=== PATIENT | female | born 1965 | race Caucasian/White ===

== ENCOUNTER 2018-07-19 13:18 | Emergency (ER) | payer BC ==
[~2018-07-19] VITALS: Ht 162.6 cm; Wt 96.2 kg
[2018-07-19 13:25] VITALS: BP 182/103
[2018-07-19 15:28] LABS: Calcium 9.1 mg/dL (8.5-10.1); Magnesium 2.4 mg/dL (1.6-2.6); Potassium 3.9 mmol/L (3.5-5.1)
[2018-07-19 15:34] LABS: BUN/Creatinine Ratio 15.3; Bilirubin, Total 0.3 mg/dL (0.2-1.0); Total Protein 8.2 g/dL (6.4-8.2)
[2018-07-19 15:52] LABS: Basophils # (auto) 0 uL; Basophils % (auto) 0.4 % (0.0-2.0); Eosinophils # (auto) 0.2 uL; Eosinophils % (auto) 1.2 % (0.0-7.0); Hematocrit 47.1 % (36.0-46.0); Hemoglobin 15.4 g/dL (12.2-16.2); Lymphocytes # (auto) 1.4 uL; Lymphocytes % (auto) 11.2 % (10.0-50.0); Mean Corpuscular Hemoglobin 29.4 pg (28.0-32.0); Mean Corpuscular Hgb Conc. 32.6 g/dL (32.0-36.0); Mean Corpuscular Volume 90.1 fL (80.0-100.0); Monocytes # (auto) 0.6 uL; Monocytes % (auto) 5.3 % (0.0-12.0); Neutrophils % (auto) 81.9 % (37.0-80.0); Nucleated Red Blood Cells % 0.1 %; Platelet Count (auto) 351 10^3/uL (140-450); Red Blood Cells 5.23 10^6/uL (4.0-5.20); Red Cell Distribution Width 14.6 % (11.8-14.3); White Blood Cell 12.3 10^3/uL (4.4-10.8)
== END 2018-07-19 20:28 | disposition left against medical advice (07) ==
LOC: ER 13:18
DX: R07.89 Other chest pain (principal); Z53.21 Procedure and treatment not carried out due to patient leaving prior to being seen by health care provider
CPT/HCPCS: 36415; 71046; 80053; 83735; 84484; 85025; 93005

== ENCOUNTER 2018-07-24 07:41 | Inpatient (IN) | payer BC ==
[~2018-07-24] VITALS: Ht 160 cm; Wt 96.2 kg
[2018-07-24] MEDS ORDERED: ASPirin 81 mg TAB PO ONE (08:00)
[2018-07-24 08:34] LABS: Basophils # (auto) 0.1 uL; Eosinophils # (auto) 0.1 uL; Eosinophils % (auto) 1.3 % (0.0-7.0); Hematocrit 44.3 % (36.0-46.0); Hemoglobin 14.6 g/dL (12.2-16.2); Lymphocytes # (auto) 1.6 uL; Lymphocytes % (auto) 17.2 % (10.0-50.0); Mean Corpuscular Hemoglobin 29.8 pg (28.0-32.0); Mean Corpuscular Hgb Conc. 33.1 g/dL (32.0-36.0); Mean Corpuscular Volume 90.2 fL (80.0-100.0); Monocytes # (auto) 0.6 uL; Monocytes % (auto) 6.6 % (0.0-12.0); Neutrophils # (auto) 6.7 uL; Neutrophils % (auto) 73.9 % (37.0-80.0); Nucleated Red Blood Cells % 0.1 %; Platelet Count (auto) 349 10^3/uL (140-450); Red Blood Cells 4.91 10^6/uL (4.0-5.20); Red Cell Distribution Width 14.7 % (11.8-14.3); White Blood Cell 9.1 10^3/uL (4.4-10.8)
[2018-07-24 08:48] LABS: Albumin 3.7 g/dL (3.4-5.0); BUN/Creatinine Ratio 13.8; Calcium 8.8 mg/dL (8.5-10.1); Potassium 4.4 mmol/L (3.5-5.1)
[2018-07-24 08:53] LABS: Bilirubin, Total 0.4 mg/dL (0.2-1.0); Total Protein 7.7 g/dL (6.4-8.2)
[2018-07-24] MEDS ORDERED: ENOXAPARIN SOD 80 MG/0.8ML SYRINGE SC ONE (09:15)
[2018-07-24] MEDS ORDERED: ONDANSETRON HCL 4 MG/2 ML VIAL IV PRN (09:30)
[2018-07-24] MEDS ORDERED: NITROGLYCERIN 0.4 MG SL TAB SL PRN (09:30)
[2018-07-24] MEDS ORDERED: NITROGLYCERIN 0.4MG/HR TOPICAL PATCH TD ONE (09:30)
[2018-07-24] MEDS ORDERED: MORPHINE SULFATE 10 MG/ML INJ 1ML SDV IV PRN ×2 (09:30)
[2018-07-24] MEDS: SODIUM CHLORIDE 0.9% 1,000 ML IV SCH ×2 (09:41→20:53)
[2018-07-24] MEDS: METOPROLOL TARTRATE 25 MG TAB PO SCH ×2 (09:46→20:53)
[2018-07-24] MEDS: NITROGLYCERIN 0.4MG/HR TOPICAL PATCH TD SCH (09:47)
[2018-07-24] MEDS ORDERED: fentaNYL CITRATE 100 MCG/2 ML VL ONE (10:33)
[2018-07-24] MEDS ORDERED: MIDAZOLAM HCL 1MG/1ML-2 ML VIAL ONE (10:33)
[2018-07-24] MEDS ORDERED: SODIUM CHL 0.9% 50 ML ONE (10:33)
[2018-07-24] MEDS ORDERED: ANGIOMAX 250 MG VIAL IV ONE (10:33)
[2018-07-24] MEDS ORDERED: IOHEXOL 350 MG/ML 100ML IJ ONE (10:35)
[2018-07-24] MEDS ORDERED: LIDOCAINE 2%HCL (LOCAL ANESTH.) INJ 20ML MDV ONE (10:36)
[2018-07-24 11:05] LABS: Urine Bacteria NONE SEEN /hpf (None Seen); Urine Blood Negative /uL (Negative); Urine Mucus FEW (None Seen); Urine WBC <1 /hpf (0 - 5)
[2018-07-24] MEDS ORDERED: PRASUGREL HCL 10 MG TAB ONE (11:23)
[2018-07-24 12:00] VITALS: BP_SYST 94; BP_SYST 95; BP_DIAS 54
--- NOTE | 2018-07-24 12:00 | NUR ---
Admit to [facility] admitted to [facility] s/p LT Heart Cath, Mid Circ Stent via hospital bed on vehicle monitor technician, and portable 02. Patient transfered to bed, connected to unit monitoring and oxygen, and weighed by bedscale. Patient awake and alert. No S/S of SOB/distress noted, denies pain and nausea at this time. See interventions for complete physical assessment. RT groin dressing blood stained, marked, will continue to monitor. No hematoma or bruising noted. Palpable pedal pulses. Will maintain patient flat until 2pm, patient and at bedside instructed. Patient oriented to Jody adamson RN, unit, room, bed, and unit policies regarding patient care and visiting hours. All questions and concerns addressed, patient verbalized understanding. Bed locked on low position, side rails up x2, bed alarms on at all times, call dinh within reach, instructed to call for needed assisstance. Will continue to monitor.
[2018-07-24 14:06] LABS: INR 1.25 (0.9-1.15); Partial Thromboplastin Time 40.6 sec (23.78-33.04); Prothrombin Time 13.2 sec (9.27-12.13)
[2018-07-24] MEDS ORDERED: LISI-646 PO (14:07)
[2018-07-24 15:39] VITALS: BP 117/82
--- NOTE | 2018-07-24 17:30 | NUR ---
VERONICA Mayo at bedside, updated on patient's status. Made aware patient is having minimal bloody vaginal discharge. No orders at this time.
--- NOTE | 2018-07-24 19:30 | NUR ---
SHIFT OPENING NOTE RECEIVED PATIENT AWAKE, ALERT AND ORIENTED X4. NO SOB, DISTRESS OR PAIN NOTED. ON 1.5 L N/C. S/P LHC. RIGHT GROIN DRESSING SHOWS MINIMAL DRIED BLOOD, MARKED FROM PREVIOUS SHIFT. NO HEMATOMA OR ACTIVE BLEEDING NOTED. NORMAL PULSES ON RIGHT LOWER EXTREMITY. INSTRUCTED ON POC AND TO CALL FOR ASSIST NEEDED. BED IS IN THE LOWEST POSITION WITH SIDE RAILS UP X2, CALL LIGHT IS WITHIN REACH. Addendum: 07/24/18 at 2025 by Ligia Kat RN WRONG NURSE NOTE
[2018-07-24 19:47] VITALS: BP 131/71
[2018-07-24] MEDS ORDERED: ATORVASTATIN 20 MG TAB PO SCH (22:00)
--- NOTE | 2018-07-24 23:30 | NUR ---
RIGHT GROIN SITE CHECK NO NEW BLEEDING OR HEMATOMA NOTED. NORMAL PULSES IN RIGHT LOWER EXTREMITY. WILL CONTINUE TO MONITOR.
[2018-07-25] VITALS: BP 128/70
--- NOTE | 2018-07-25 01:00 | NUR ---
ROUNDS PATIENT IS LAYING IN BED SLEEPING. NO SOB, DISTRESS OR PAIN NOTED. VS STABLE. WILL CONTINUE TO MONITOR.
[2018-07-25 04:00] VITALS: BP 109/68
--- NOTE | 2018-07-25 04:00 | NUR ---
MORNING HYGIENE CARE PATIENT INDEPENDENTLY AMBULATED TO THE BATHROOM. PARTIAL LINEN CHANGE PERFORMED. GOWN CHANGED. PATIENT SAFELY BACK TO BED.
--- NOTE | 2018-07-25 04:10 | NUR ---
RIGHT GROIN SITE CHECK NO NEW BLEEDING OR HEMATOMA NOTED. NORMAL PULSES IN RIGHT LOWER EXTREMITY. WILL CONTINUE TO MONITOR.
[2018-07-25 05:03] LABS: Albumin 3.3 g/dL (3.4-5.0); Calcium 8.5 mg/dL (8.5-10.1); Magnesium 2.6 mg/dL (1.6-2.6); Potassium 4.2 mmol/L (3.5-5.1)
[2018-07-25 05:08] LABS: BUN/Creatinine Ratio 14.9; Bilirubin, Total 0.5 mg/dL (0.2-1.0); Total Protein 6.8 g/dL (6.4-8.2)
[2018-07-25 05:34] LABS: INR 0.96 (0.9-1.15); Partial Thromboplastin Time 27.6 sec (23.78-33.04); Prothrombin Time 10.3 sec (9.27-12.13)
--- NOTE | 2018-07-25 07:10 | NUR ---
END OF SHIFT REPORT GIVEN AND CARE ENDORSED TO DAY SHIFT RN.
[2018-07-25 08:00] VITALS: BP 121/83
[2018-07-25] MEDS: METOPROLOL TARTRATE 25 MG TAB PO SCH (09:46)
[2018-07-25] MEDS: NITROGLYCERIN 0.4MG/HR TOPICAL PATCH TD SCH (09:46)
[2018-07-25] MEDS ORDERED: ASPirin-EC 81 mg tab PO SCH (10:00)
[2018-07-25] MEDS ORDERED: PRASUGREL HCL 10 MG TAB PO SCH (10:00)
[2018-07-25 12:00] VITALS: BP 117/65
--- NOTE | 2018-07-25 12:20 | NUR ---
Resumed care of patient at 0700. Orders reviewed and ongoing assessments being done. S/P LHC yesterday with intervention. Remains alert and interacting appropriately, in good spirits. Participating with self care and in no acute distress, ambulating to the bathroom without incident. Right groin, insertion site with dressing, D/I no hematoma noted. Good palpable pulse to right extremity. at bedside. Awaiting hospitalist to round and [employer].
[2018-07-25 14:02] VITALS: BP 117/65
--- NOTE | 2018-07-25 15:15 | NUR ---
Both Dr. Travis and Dr. Stewart rounded on the patient. Per doctors okay to discharge home. Discharge instructions given as ordered. Encourage to follow up with PMD as instructed. All questions and concerns addressed. Patient verbalized understanding. Medication reconciliation form completed and copy given to patient. IV removed with catheter intact, pressure dressing applied. Patient taken to vehicle via wheelchair with all personal belongings, accompanied by staff and . No distress noted at time of departure.
== END 2018-07-25 13:30 | disposition home or self-care (01) | DRG 247 ==
LOC: ER 07:41 → OVERFLOW 09:35 → ICU CENTRL 10:32 → DOU IN ICU 10:44
PROVIDERS: ADMIT Nurse Practitioner Acute Care; ATTEND Family Medicine
PROC: 027034Z Dilation of Coronary Artery, One Artery with Drug-eluting Intraluminal Device, Percutaneous Approach (ICD-10-PCS; principal; 2018-07-24)
PROC: 4A023N7 Measurement of Cardiac Sampling and Pressure, Left Heart, Percutaneous Approach (ICD-10-PCS; 2018-07-24)
PROC: B2111ZZ Fluoroscopy of Multiple Coronary Arteries using Low Osmolar Contrast (ICD-10-PCS; 2018-07-24)
PROC: B2151ZZ Fluoroscopy of Left Heart using Low Osmolar Contrast (ICD-10-PCS; 2018-07-24)
DX: I21.4 Non-ST elevation (NSTEMI) myocardial infarction (principal); I50.30 Unspecified diastolic (congestive) heart failure; I11.0 Hypertensive heart disease with heart failure; E78.00 Pure hypercholesterolemia, unspecified; I25.10 Atherosclerotic heart disease of native coronary artery without angina pectoris; J45.909 Unspecified asthma, uncomplicated; Z79.899 Other long term (current) drug therapy; Z82.49 Family history of ischemic heart disease and other diseases of the circulatory system; Z88.1 Allergy status to other antibiotic agents; Z88.2 Allergy status to sulfonamides
CPT/HCPCS: 36415; 71046; 80053; 80061; 81001; 83735; 84443; 84484; 84702; 85025; 85610; 85730; 86850; 86900; 86901; 87081; 93306; 96361; 96374; 99152; A6257; C1874; G0378; J2250

== ENCOUNTER → 2018-07-24 | Outpatient (CLI) | payer BC ==
[~2018-07-24] MED LIST: LISI-646 PO
[2018-07-24 08:13] LABS: Basophils # (auto) 0.1 uL; Basophils % (auto) 0.7 % (0.0-2.0); Eosinophils # (auto) 0.1 uL; Eosinophils % (auto) 1.5 % (0.0-7.0); Hematocrit 45.8 % (36.0-46.0); Hemoglobin 15.1 g/dL (12.2-16.2); Lymphocytes % (auto) 20.4 % (10.0-50.0); Mean Corpuscular Hemoglobin 29.7 pg (28.0-32.0); Mean Corpuscular Volume 90.1 fL (80.0-100.0); Monocytes # (auto) 0.6 uL; Monocytes % (auto) 6.4 % (0.0-12.0); Neutrophils # (auto) 7.1 uL; Nucleated Red Blood Cells % 0.1 %; Platelet Count (auto) 355 10^3/uL (140-450); Red Blood Cells 5.09 10^6/uL (4.0-5.20); Red Cell Distribution Width 14.7 % (11.8-14.3); White Blood Cell 9.9 10^3/uL (4.4-10.8)
[2018-07-24 08:35] LABS: Albumin 3.9 g/dL (3.4-5.0); BUN/Creatinine Ratio 16.9; Calcium 9.2 mg/dL (8.5-10.1); Potassium 4.3 mmol/L (3.5-5.1)
[2018-07-24 08:38] LABS: Bilirubin, Total 0.4 mg/dL (0.2-1.0); Total Protein 8.2 g/dL (6.4-8.2)
== END | disposition home or self-care (01) ==
LOC: LAB 07:12
PROVIDERS: ATTEND Nurse Practitioner
DX: E78.5 Hyperlipidemia, unspecified (principal); I10 Essential (primary) hypertension
CPT/HCPCS: 36415; 80053; 80061; 83036; 83880; 84443; 85025

== ENCOUNTER → 2018-08-21 | Outpatient (CLI) | payer BC | END | disposition home or self-care (01) | LOC: Rad HDHVI 13:54 | PROVIDERS: ATTEND Internal Medicine Cardiovascular Disease | DX: I08.1 Rheumatic disorders of both mitral and tricuspid valves (principal); I10 Essential (primary) hypertension; E78.5 Hyperlipidemia, unspecified | CPT/HCPCS: 93306 ==

== ENCOUNTER → 2019-01-22 | Outpatient (CLI) | payer BC ==
[2019-01-22 08:34] LABS: Basophils # (auto) 0 uL; Basophils % (auto) 0.5 % (0.0-2.0); Eosinophils # (auto) 0.2 uL; Eosinophils % (auto) 2.8 % (0.0-7.0); Hemoglobin 14.4 g/dL (12.2-16.2); Lymphocytes # (auto) 1.6 uL; Lymphocytes % (auto) 21.2 % (10.0-50.0); Mean Corpuscular Hemoglobin 30.6 pg (28.0-32.0); Mean Corpuscular Hgb Conc. 33.4 g/dL (32.0-36.0); Mean Corpuscular Volume 91.5 fL (80.0-100.0); Monocytes # (auto) 0.6 uL; Monocytes % (auto) 8.2 % (0.0-12.0); Neutrophils # (auto) 5.2 uL; Neutrophils % (auto) 67.3 % (37.0-80.0); Platelet Count (auto) 285 10^3/uL (140-450); Red Cell Distribution Width 14.1 % (11.8-14.3); White Blood Cell 7.7 10^3/uL (4.4-10.8)
[2019-01-22 08:51] LABS: Albumin 3.8 g/dL (3.4-5.0); Calcium 9.3 mg/dL (8.5-10.1); Potassium 4.2 mmol/L (3.5-5.1)
[2019-01-22 08:56] LABS: Bilirubin, Total 0.4 mg/dL (0.2-1.0); Total Protein 7.6 g/dL (6.4-8.2)
== END | disposition home or self-care (01) ==
LOC: LAB 08:05
PROVIDERS: ATTEND Internal Medicine
DX: Z12.11 Encounter for screening for malignant neoplasm of colon (principal); I10 Essential (primary) hypertension; I25.10 Atherosclerotic heart disease of native coronary artery without angina pectoris; E78.5 Hyperlipidemia, unspecified
CPT/HCPCS: 36415; 80053; 80061; 82306; 84443; 85025

== ENCOUNTER → 2019-02-07 | Outpatient (CLI) | payer BC | END | disposition home or self-care (01) | LOC: LAB 13:01 | PROVIDERS: ATTEND Internal Medicine | DX: Z12.11 Encounter for screening for malignant neoplasm of colon (principal); E78.5 Hyperlipidemia, unspecified; I25.10 Atherosclerotic heart disease of native coronary artery without angina pectoris; I10 Essential (primary) hypertension | CPT/HCPCS: 82274 ==

== ENCOUNTER → 2019-04-23 | Outpatient (CLI) | payer BC ==
[~2019-04-23] VITALS: Ht 162.6 cm; Wt 86.2 kg
[~2019-04-23] MED LIST changes: +ALBUTEROL SULF 2.5 MG/0.5ML(0.5%) NEB SOLN ONE
== END | disposition home or self-care (01) ==
LOC: Rad HDHVI 13:25
PROVIDERS: ATTEND Internal Medicine Cardiovascular Disease
DX: I10 Essential (primary) hypertension (principal); E78.00 Pure hypercholesterolemia, unspecified
CPT/HCPCS: 78452; 93017; 96374; A9500

== ENCOUNTER → 2019-09-12 | Outpatient (CLI) | payer BC ==
[~2019-09-12] MED LIST changes: -ALBUTEROL SULF 2.5 MG/0.5ML(0.5%) NEB SOLN ONE
[2019-09-12 09:08] LABS: Albumin 3.8 g/dL (3.4-5.0); Calcium 9.2 mg/dL (8.5-10.1); Potassium 4.7 mmol/L (3.5-5.1)
[2019-09-12 09:14] LABS: BUN/Creatinine Ratio 16.7; Bilirubin, Total 0.3 mg/dL (0.2-1.0); Total Protein 7.8 g/dL (6.4-8.2)
== END | disposition home or self-care (01) ==
LOC: LAB 08:31
PROVIDERS: ATTEND Internal Medicine
DX: I50.9 Heart failure, unspecified (principal); I25.10 Atherosclerotic heart disease of native coronary artery without angina pectoris
CPT/HCPCS: 36415; 80053; 80061

== ENCOUNTER → 2020-06-10 | Outpatient (CLI) | payer BC ==
[2020-06-10 08:41] LABS: Basophils # (auto) 0.1 10 ^3/uL (0-0.2); Basophils % (auto) 0.7 % (0.0-2.0); Eosinophils # (auto) 0.2 10 ^3/uL (0-0.8); Eosinophils % (auto) 2.4 % (0.0-7.0); Hematocrit 44.9 % (36.0-46.0); Hemoglobin 14.4 g/dL (12.2-16.2); Lymphocytes # (auto) 1.6 10 ^3/uL (0.4-5.4); Lymphocytes % (auto) 19.7 % (10.0-50.0); Mean Corpuscular Hemoglobin 29.6 pg (28.0-32.0); Mean Corpuscular Hgb Conc. 32.1 g/dL (32.0-36.0); Mean Corpuscular Volume 92.3 fL (80.0-100.0); Monocytes # (auto) 0.5 10 ^3/uL (0-1.3); Monocytes % (auto) 6.7 % (0.0-12.0); Neutrophils # (auto) 5.6 10 ^3/uL (1.6-8.6); Neutrophils % (auto) 70.5 % (37.0-80.0); Platelet Count (auto) 294 10^3/uL (140-450); Red Blood Cells 4.87 10^6/uL (4.0-5.20); Red Cell Distribution Width 14.4 % (11.8-14.3)
[2020-06-10 09:07] LABS: Albumin 3.6 g/dL (3.4-5.0); Calcium 9.1 mg/dL (8.5-10.1); Potassium 4.6 mmol/L (3.5-5.1); Urine Bacteria NONE SEEN /hpf (None Seen); Urine Blood Negative /uL (Negative); Urine Mucus FEW (None Seen); Urine Specific Gravity 1.029 (1.001-1.035); Urine WBC 3 /hpf (0 - 5)
[2020-06-10 09:12] LABS: Bilirubin, Total 0.4 mg/dL (0.2-1.0); Total Protein 7.6 g/dL (6.4-8.2)
[2020-06-10 09:32] LABS: Free T4 (Free Thyroxine) 0.76 ng/dL (0.89-1.76)
== END | disposition home or self-care (01) ==
LOC: LAB 08:23
PROVIDERS: ATTEND Internal Medicine Cardiovascular Disease
DX: D51.3 Other dietary vitamin B12 deficiency anemia (principal); D64.9 Anemia, unspecified; E11.9 Type 2 diabetes mellitus without complications; E55.9 Vitamin D deficiency, unspecified; I10 Essential (primary) hypertension; R00.2 Palpitations; R53.1 Weakness; R30.0 Dysuria
CPT/HCPCS: 36415; 80053; 80061; 81001; 82306; 82607; 83036; 84439; 84443; 85025

== ENCOUNTER → 2022-03-09 | Outpatient (CLI) | payer BC ==
[~2022-03-09] MED LIST changes: -LISI-646 PO; +LISI20TA28 PO
[2022-03-09 14:11] LABS: Albumin 3.7 g/dL (3.4-5.0); Calcium 9.4 mg/dL (8.5-10.1); Potassium 4.5 mmol/L (3.5-5.1)
[2022-03-09 14:14] LABS: BUN/Creatinine Ratio 14.5; Bilirubin, Total 0.4 mg/dL (0.2-1.0); Total Protein 7.5 g/dL (6.4-8.2)
== END | disposition home or self-care (01) ==
LOC: LAB 13:35
PROVIDERS: ATTEND Internal Medicine
DX: E78.5 Hyperlipidemia, unspecified (principal); I10 Essential (primary) hypertension
CPT/HCPCS: 36415; 80053

== ENCOUNTER → 2022-12-07 | Outpatient (CLI) | payer BC ==
[2022-12-07 09:23] LABS: Basophils # (auto) 0 10 ^3/uL (0-0.2); Basophils % (auto) 0.4 % (0.0-2.0); Eosinophils # (auto) 0.3 10 ^3/uL (0-0.8); Eosinophils % (auto) 2.9 % (0.0-7.0); Hematocrit 41.9 % (36.0-46.0); Lymphocytes # (auto) 1.8 10 ^3/uL (0.4-5.4); Mean Corpuscular Hemoglobin 30.9 pg (28.0-32.0); Mean Corpuscular Hgb Conc. 33.3 g/dL (32.0-36.0); Mean Corpuscular Volume 92.8 fL (80.0-100.0); Monocytes # (auto) 0.6 10 ^3/uL (0-1.3); Monocytes % (auto) 6.9 % (0.0-12.0); Neutrophils # (auto) 6.1 10 ^3/uL (1.6-8.6); Neutrophils % (auto) 69.8 % (37.0-80.0); Nucleated Red Blood Cells % 0.1 %; Red Blood Cells 4.52 10^6/uL (4.0-5.20); White Blood Cell 8.8 10^3/uL (4.4-10.8)
[2022-12-07 09:38] LABS: Urine Bacteria NONE SEEN /hpf (None Seen); Urine Blood Negative /uL (Negative); Urine Specific Gravity 1.024 (1.001-1.035); Urine WBC <1 /hpf (0 - 5)
[2022-12-07 10:16] LABS: Potassium 4.4 mmol/L (3.5-5.1)
[2022-12-07 10:28] LABS: Albumin 3.7 g/dL (3.4-5.0); BUN/Creatinine Ratio 21.1 (10.0-20.0); Bilirubin, Total 0.7 mg/dL (0.2-1.0); Calcium 9.2 mg/dL (8.5-10.1); Total Protein 7.4 g/dL (6.4-8.2)
== END | disposition home or self-care (01) ==
LOC: LAB 09:09
PROVIDERS: ATTEND Internal Medicine
DX: Z13.1 Encounter for screening for diabetes mellitus (principal); Z29.9 Encounter for prophylactic measures, unspecified; E66.9 Obesity, unspecified
CPT/HCPCS: 36415; 80053; 80061; 81001; 83036; 84439; 84443; 85025